=== PATIENT | male | born 1950 | race Caucasian/White ===

== ENCOUNTER 2020-03-31 14:34 | Emergency (ER) | payer MEDICARE ==
[~2020-03-31] VITALS: Ht 180.3 cm; Wt 102.4 kg
[2020-03-31] MEDS ORDERED: SODIUM CHLORIDE FLUSH 10ML SYR IVF ONE (15:00)
--- NOTE | 2020-03-31 15:03 | NUR ---
CAM SPECIALIST: EKG DONE IN TRIAGE.
--- NOTE | 2020-03-31 15:22 | NUR ---
PT BIB POV. PT REPORTS HAVING DIFFICULTY BREATHING. PT REPORTS THAT HE IS AN ASTHMATIC AND HAS NOT BEEN RESPONDING TO HIS ALBUTEROL WELL FOR THE PAST 2 WEEKS. PT WEARS CPAP AT NIGHT. PT RESTING IN [facility], MONITORING IN PLACE, EKG DONE, NADN AT THIS TIME, LAB AT BEDSIDE FOR BLOOD DRAW, WCTM.
[2020-03-31 15:29] LABS: BASOPHILS % (AUTO) 2 % (0-1); EOSINOPHILS % (AUTO) 15 % (1-7); LYMPHOCYTES % (AUTO) 14 % (22-44); MEAN CORPUSCULAR HEMOGLOBIN 33.7 pg (27.5-34.5); MEAN CORPUSCULAR HGB CONC 34.1 g/dL (33.2-36.2); MEAN PLATELET VOLUME 8.2 fL (7.4-10.4); MONOCYTES % (AUTO) 12 % (2-9); NEUTROPHILS % (AUTO) 57 % (42-75); PLATELET COUNT 399 x10^3/uL (130-400); RED BLOOD COUNT 4.65 x10^6/uL (4.38-5.82); RED CELL DISTRIBUTION WIDTH 13.7 % (9.4-14.8)
[2020-03-31 15:33] LABS: MD NO
[2020-03-31 15:37] LABS: ALBUMIN 4.1 g/dL (3.4-5.0); ANION GAP 13 mmol/L (5-15); CALCIUM 9.5 mg/dL (8.5-10.1); CHLORIDE 95 mmol/L (98-107)
[2020-03-31 15:43] LABS: CREATININE 1.68 mg/dL (0.7-1.3)
[2020-03-31 15:44] LABS: ALANINE AMINOTRANSFERASE 75 U/L (12-78); ALKALINE PHOSPHATASE 117 U/L (45-117); BILIRUBIN,TOTAL 0.6 mg/dL (0.2-1.0); TOTAL PROTEIN 8.2 g/dL (6.4-8.2); TROPONIN I < 0.015 ng/mL (0.000-0.045)
[2020-03-31 16:13] VITALS: BP 124/78
[2020-03-31] MEDS ORDERED: ALBUTEROL/IPRATROPIUM 2.5MG/0.5MG, 3 ML ONE (16:26)
[2020-03-31] MEDS ORDERED: ALBUTEROL/IPRATROPIUM 2.5MG/0.5MG, 3 ML NPPB ONE (16:30)
== END 2020-03-31 17:13 | disposition home or self-care (01) ==
LOC: ED 16:54
DX: J45.901 Unspecified asthma with (acute) exacerbation (principal); R07.89 Other chest pain; R06.00 Dyspnea, unspecified
CPT/HCPCS: 36415; 71045; 80053; 83880; 84484; 85025; 93005; 94640; 99285; J7512

== ENCOUNTER 2020-04-09 09:31 | Inpatient (IN) | payer MEDICARE ==
[~2020-04-09] VITALS: Ht 180.3 cm; Wt 98.3 kg
--- NOTE | 2020-04-09 09:56 | NUR ---
at bedside for exam.
--- NOTE | 2020-04-09 10:00 | NUR ---
guillotine trimmer completed after MD exam. Warm blanket provided and diet tray ordered with special instructions for no nuts due to severe allergy attached to order. Pt denies c/o at this time stating all symptoms have resolved thus far.
[2020-04-09 10:26] LABS: BASOPHILS % (AUTO) 0 % (0-1); EOSINOPHILS % (AUTO) 0 % (1-7); LYMPHOCYTES % (AUTO) 4 % (22-44); MEAN CORPUSCULAR HEMOGLOBIN 33.8 pg (27.5-34.5); MEAN CORPUSCULAR HGB CONC 34.9 g/dL (33.2-36.2); MEAN PLATELET VOLUME 8.1 fL (7.4-10.4); MONOCYTES % (AUTO) 8 % (2-9); NEUTROPHILS % (AUTO) 88 % (42-75); PLATELET COUNT 352 x10^3/uL (130-400); RED BLOOD COUNT 4.57 x10^6/uL (4.38-5.82); RED CELL DISTRIBUTION WIDTH 13.9 % (9.4-14.8)
[2020-04-09 10:30] LABS: ALANINE AMINOTRANSFERASE 57 U/L (12-78); ALBUMIN 3.6 g/dL (3.4-5.0); ANION GAP 19 mmol/L (5-15); CALCIUM 9.1 mg/dL (8.5-10.1); CHLORIDE 93 mmol/L (98-107); CREATININE 2.33 mg/dL (0.7-1.3)
[2020-04-09 10:32] LABS: ALKALINE PHOSPHATASE 113 U/L (45-117); BILIRUBIN,TOTAL 0.8 mg/dL (0.2-1.0); TOTAL PROTEIN 7.4 g/dL (6.4-8.2)
[2020-04-09 10:36] LABS: MD NO
--- NOTE | 2020-04-09 10:52 | NUR ---
Report given to FIDENCIO Marie and care transferred.
--- NOTE | 2020-04-09 10:53 | NUR ---
REPORT RECEIVED FROM YUVAL NICOLAS. ASSUMING CARE AT THIS TIME. PT RESTING COMFORTABLY ON GURNEY WITH FAMILY AT BEDSIDE. NADN. AWAITING DIET TRAY.
--- NOTE | 2020-04-09 10:57 | NUR ---
DAMARIS ORTIZ PROVIDED. PT APPRECIATIVE.
[2020-04-09] MEDS ORDERED: SODIUM CHLORIDE 0.9% 1,000ML IVBOLUS ONE (11:00)
--- NOTE | 2020-04-09 11:11 | NUR ---
PIV PLACED. IVF RUNNING. PT EATING.
--- NOTE | 2020-04-09 11:46 | NUR ---
PT AMBULATED TO RESTROOM WITH STEADY GAIT TO PROVIDE URINE SAMPLE. PT UNABLE TO PROVIDE SAMPLE AT THIS TIME.
--- NOTE | 2020-04-09 12:38 | NUR ---
PT AMBULATED TO RESTROOM WITH STEADY GAIT TO PROVIDE URINE SAMPLE. UA COLLECTED AND SENT TO LAB.
[2020-04-09 12:56] LABS: MICROSCOPIC NOT IND
--- NOTE | 2020-04-09 13:41 | NUR ---
REPORT GIVEN TO DELIA NICOLAS. PT RTG TO ROOM 359
[2020-04-09 14:34] VITALS: BP 111/71
[2020-04-09 15:10] VITALS: BP 116/68
[2020-04-09] MEDS ORDERED: FLUT9.9S NAS (15:21)
[2020-04-09] MEDS ORDERED: FLUT12AE INH (15:21)
[2020-04-09] MEDS ORDERED: ALBU90AE INH (15:21)
[2020-04-09] MEDS ORDERED: METO25TA35 PO (15:38)
[2020-04-09] MEDS ORDERED: MONT10TA17 PO (15:38)
[2020-04-09] MEDS ORDERED: EZET10TA70 PO (15:38)
[2020-04-09] MEDS ORDERED: ALLO300T PO (15:38)
[2020-04-09] MEDS ORDERED: CHLO25TA PO (15:38)
[2020-04-09] MEDS ORDERED: OLME20TA17 PO (15:38)
[2020-04-09] MEDS ORDERED: PRED10TA PO (15:52)
[2020-04-09] MEDS ORDERED: ALBU2.5V NEB (15:52)
[2020-04-09] MEDS ORDERED: LORA-247 PO (15:52)
[2020-04-09] MEDS ORDERED: ALBUTEROL SULFATE 2.5 MG/3 ML NEB PRN (16:00)
[2020-04-09] MEDS ORDERED: LORATADINE 10 MG TABLET PO PRN (16:00)
[2020-04-09] MEDS ORDERED: DOCUSATE 100 MG CAPSULE PO PRN (16:30)
[2020-04-09] MEDS ORDERED: POLYETHYLENE GLYCOL 17 GM PACKET PO PRN (16:30)
[2020-04-09] MEDS ORDERED: ACETAMINOPHEN 325 MG TABLET PO PRN (16:30)
[2020-04-09] MEDS ORDERED: BISACODYL 10 MG SUPP PR PRN (16:30)
[2020-04-09] MEDS ORDERED: METOCLOPRAMIDE 5 MG/ML, 2ML IVPush PRN (16:30)
[2020-04-09] MEDS: ALBUTEROL HFA 90 MCG/SPRAY INH PRN ×2 (18:25→21:08)
[2020-04-09] MEDS: HEPARIN 5,000 UNITS/ML, 1ML SQ SCH (18:25)
[2020-04-09] MEDS: methylPREDNISolone SOD SUCC 40 MG/ML IVPush SCH (18:25)
[2020-04-09] MEDS: SODIUM CHLORIDE 0.9% 1,000 ML IV SCH (18:28)
[2020-04-09] MEDS ORDERED: CEFTRIAXONE PMX 1GM/50ML 50 ML IV SCH (18:30)
[2020-04-09] MEDS ORDERED: FLUTICASONE NASAL SPRAY 16GM NAS SCH (21:00)
[2020-04-09 21:18] VITALS: BP 121/70
[2020-04-10] MEDS: methylPREDNISolone SOD SUCC 40 MG/ML IVPush SCH (01:15)
[2020-04-10] MEDS: HEPARIN 5,000 UNITS/ML, 1ML SQ SCH ×2 (01:15→09:14)
[2020-04-10 01:18] VITALS: BP 95/58
[2020-04-10] MEDS: SODIUM CHLORIDE 0.9% 1,000 ML IV SCH (05:00)
[2020-04-10 05:25] LABS: BASOPHILS % (AUTO) 1 % (0-1); EOSINOPHILS % (AUTO) 0 % (1-7); LYMPHOCYTES % (AUTO) 3 % (22-44); MEAN CORPUSCULAR HGB CONC 34.4 g/dL (33.2-36.2); MEAN PLATELET VOLUME 8.4 fL (7.4-10.4); MONOCYTES % (AUTO) 2 % (2-9); NEUTROPHILS % (AUTO) 94 % (42-75); PLATELET COUNT 316 x10^3/uL (130-400); RED BLOOD COUNT 4.39 x10^6/uL (4.38-5.82); RED CELL DISTRIBUTION WIDTH 13.6 % (9.4-14.8)
[2020-04-10 05:36] LABS: ALBUMIN 3.1 g/dL (3.4-5.0); ANION GAP 11 mmol/L (5-15); CHLORIDE 93 mmol/L (98-107)
[2020-04-10 05:45] LABS: CALCIUM 8.3 mg/dL (8.5-10.1); CREATININE 1.65 mg/dL (0.7-1.3)
[2020-04-10 05:46] LABS: ALANINE AMINOTRANSFERASE 45 U/L (12-78); ALKALINE PHOSPHATASE 129 U/L (45-117); BILIRUBIN,TOTAL 0.4 mg/dL (0.2-1.0); CHOL/HDL RATIO 3.3; CHOLESTEROL, TOTAL 187 mg/dL (140-239); HDL CHOL % 30 % (26-37); HDL CHOLESTEROL (DIRECT) 56 mg/dL (40-60); LDL CHOLESTEROL,CALCULATED 106 mg/dL (54-169); LDL/HDL RATIO 1.9 (0.5-3.0); TOTAL PROTEIN 6.4 g/dL (6.4-8.2); TRIGLYCERIDES 126 mg/dL (50-200); VLDL CHOLESTEROL 25 mg/dL (0-25)
[2020-04-10 05:58] LABS: MD SCAN
[2020-04-10] MEDS ORDERED: PANTOPRAZOLE 40MG TABLET PO SCH (07:30)
[2020-04-10 08:20] LABS: ANION GAP 12 mmol/L (5-15); CALCIUM 8.7 mg/dL (8.5-10.1); CHLORIDE 94 mmol/L (98-107); CREATININE 1.65 mg/dL (0.7-1.3)
[2020-04-10 08:49] VITALS: BP 134/81
[2020-04-10 08:51] VITALS: BP 141/96
[2020-04-10 08:52] VITALS: BP 113/71
[2020-04-10] MEDS ORDERED: MONTELUKAST 10 MG TABLET PO SCH (09:00)
[2020-04-10] MEDS ORDERED: ALLOPURINOL 100 MG TABLET PO SCH (09:00)
[2020-04-10] MEDS ORDERED: FLUTICASONE FUROATE 100MCG/INH INH SCH (09:00)
[2020-04-10] MEDS ORDERED: EZETIMIBE 10 MG TABLET PO SCH (09:00)
[2020-04-10 13:44] VITALS: BP 122/72
== END 2020-04-10 16:45 | disposition home or self-care (01) | DRG 683 ==
LOC: ED 12:05 → EDIP 13:07 → 3N 13:53 → 5SO 14:57 → DCLOUNGE 04-10 16:37
PROVIDERS: ADMIT Hospitalist; ATTEND Family Medicine
DX: N17.9 Acute kidney failure, unspecified (principal); E87.1 Hypo-osmolality and hyponatremia; E86.0 Dehydration; R55 Syncope and collapse; D72.829 Elevated white blood cell count, unspecified; E11.9 Type 2 diabetes mellitus without complications; E78.5 Hyperlipidemia, unspecified; I10 Essential (primary) hypertension; I44.4 Left anterior fascicular block; J45.909 Unspecified asthma, uncomplicated; G47.33 Obstructive sleep apnea (adult) (pediatric); J33.9 Nasal polyp, unspecified; M10.9 Gout, unspecified; Z79.82 Long term (current) use of aspirin; Z79.899 Other long term (current) drug therapy; Z88.8 Allergy status to other drugs, medicaments and biological substances; Z79.891 Long term (current) use of opiate analgesic; Z91.018 Allergy to other foods
CPT/HCPCS: 36415; 71046; 80048; 80053; 80061; 81003; 83036; 83735; 84100; 84443; 85025; 93005; 96361; 96374; 96375; 99285; C8929; G0378; J0696; J1644; Q9957; J2920; J7030; J7512

== ENCOUNTER 2020-04-13 15:50 | Emergency (ER) | payer MEDICARE ==
[~2020-04-13] VITALS: Ht 180.3 cm; Wt 97.0 kg
[~2020-04-13 15:50] MED LIST: ALBU2.5V NEB; ALBU90AE INH; ALLO300T PO; CHLO25TA PO; EZET10TA70 PO; FLUT12AE INH; FLUT9.9S NAS; LORA-247 PO; METO25TA35 PO; MONT10TA17 PO; OLME20TA17 PO; PRED10TA PO
--- NOTE | 2020-04-13 16:06 | NUR ---
BIBA CC OF HEAD/NECK PAIN, LIGHTHEADED, AND WEAKNESS. EMS FOUND PT TO HAVE BP OF 73/56 AT HOME, PIV PLACED AND 140 MLS OF NS GIVEN WITH BP INCREASING TO 101/66. PT WAS JUST HERE FOR GLF AT HOME AND HYPONATREMIA AND CONCERED HIS SYMPTOMS MIGHT BE RELATED TO THAT. PT WAS ALSO TOLD TO STOP TAKING TWO MEDICATIONS THAT HE CANNOT REMEMBER, HOWEVER HE DOES KNOW ONE IS AN ANTIARTHYMIA. AT HOME PT STATES HE WAS SITTING IN THE SUN AND FELT THESE SYMTPOMS AND FELT BETTER ONCE MOVING TO SHADY PART OF THE HOUSE. 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
[2020-04-13 17:43] LABS: MEAN CORPUSCULAR HEMOGLOBIN 33.4 pg (27.5-34.5); MEAN CORPUSCULAR HGB CONC 33.9 g/dL (33.2-36.2); MEAN PLATELET VOLUME 8.2 fL (7.4-10.4); PLATELET COUNT 307 x10^3/uL (130-400); RED CELL DISTRIBUTION WIDTH 13.9 % (9.4-14.8)
[2020-04-13 17:52] LABS: ALBUMIN 3.1 g/dL (3.4-5.0); ANION GAP 12 mmol/L (5-15); CALCIUM 8.5 mg/dL (8.5-10.1); CHLORIDE 93 mmol/L (98-107)
[2020-04-13 17:56] LABS: ALANINE AMINOTRANSFERASE 73 U/L (12-78); ALKALINE PHOSPHATASE 116 U/L (45-117); BILIRUBIN,TOTAL 0.5 mg/dL (0.2-1.0); CREATININE 2.03 mg/dL (0.7-1.3); TOTAL PROTEIN 6.7 g/dL (6.4-8.2)
[2020-04-13 18:20] LABS: MD YES
[2020-04-13 18:22] LABS: BAND#(MANUAL) 0.33 x10^3/uL; BANDS%(MANUAL) 2 % (0-7); LYMPHS% (MANUAL) 6 % (22-44); METAMYELOCYTES# (MANUAL) 0.84 x10^3/uL (0-0); METAMYELOCYTES% (MANUAL) 5 % (0-1); MONOS#(MANUAL) 3.17 x10^3/uL (0.3-2.7); MONOS% (MANUAL) 19 % (2-9); SEG#(MANUAL) 11.36 x10^3/uL (1.8-6.8); SEGS% (MANUAL) 68 % (42-75)
[2020-04-13 18:23] LABS: <PLATELET ESTIMATE> ADEQUATE; <PLT MORPHOLOGY> NORMAL PLT MORPH; <RBC MORPHOLOGY> NORMAL
[2020-04-13 18:23] LABS: MICROSCOPIC NOT IND
[2020-04-13] MEDS ORDERED: SODIUM CHLORIDE 0.9% 1,000ML IVBOLUS ONE (18:30)
--- NOTE | 2020-04-13 19:05 | NUR ---
PT STATES HE WAS TOLD TO DRINK 15 CUPS OF WATER DAILY AND HE HAS BEEN DOING SO. ERP NORMA MADE AWARE.
--- NOTE | 2020-04-13 19:37 | NUR ---
PT STATES HE FEELS SAME AFTER IVF. STEADY GAIT, INDEPENDENTLY AMBULATORY. NO RAVI.
[2020-04-13 20:09] VITALS: BP 131/66
== END 2020-04-13 20:22 | disposition home or self-care (01) ==
LOC: ED 19:55
DX: D72.829 Elevated white blood cell count, unspecified (principal); M54.2 Cervicalgia; I10 Essential (primary) hypertension; R51.9 Headache, unspecified; R00.8 Other abnormalities of heart beat; E87.1 Hypo-osmolality and hyponatremia; E11.9 Type 2 diabetes mellitus without complications; J45.909 Unspecified asthma, uncomplicated
CPT/HCPCS: 36415; 70450; 80053; 81003; 85025; 93005; 96360; 99285; J7030

== ENCOUNTER 2020-08-10 20:53 | Observation (INO) | payer MEDICARE ==
[~2020-08-10] VITALS: Ht 180.3 cm; Wt 104.4 kg
--- NOTE | 2020-08-10 21:09 | NUR ---
PT C/O OF TIGHT STERNAL CP SINCE 1 HOUR THAT RADIATES UNDER LEFT AND RIGHT BREAST. PT ROMA DIAPHORETIC. SINUS KATHLEEN AT 47. NO RELIEF AFTER 2 NITRO. LAST ONE AT 2043. EKG DONE AT BEDSIDE. DENIES HEADACHE, VISUAL DISTURBANCES AND SOB 325 ASA IN AM AND 325 ASA ONE HOUR AGO ATTACHED TO CARD/SP02/BP MONITORS. NADN. BED IN LOW POSITION, RAILS ENGAGED. CALL LIGHT ON LAP. CHANGED INTO GOWN.
[2020-08-10] MEDS ORDERED: ONDANSETRON 2MG/ML, 2ML ONE (21:18)
[2020-08-10] MEDS ORDERED: MORPHINE SULFATE 4 MG/ML, 1ML ONE (21:18)
[2020-08-10] MEDS ORDERED: ONDANSETRON 2MG/ML, 2ML IVPush ONE (21:30)
[2020-08-10] MEDS ORDERED: MORPHINE SULFATE 4 MG/ML, 1ML IVPush PRN (21:30)
[2020-08-10 21:40] LABS: BASOPHILS % (AUTO) 1 % (0-1); EOSINOPHILS % (AUTO) 6 % (1-7); LYMPHOCYTES % (AUTO) 15 % (22-44); MEAN CORPUSCULAR HGB CONC 33.9 g/dL (33.2-36.2); MEAN PLATELET VOLUME 8.4 fL (7.4-10.4); MONOCYTES % (AUTO) 15 % (2-9); NEUTROPHILS % (AUTO) 63 % (42-75); PLATELET COUNT 275 x10^3/uL (130-400); RED BLOOD COUNT 4.32 x10^6/uL (4.38-5.82); RED CELL DISTRIBUTION WIDTH 15.1 % (9.4-14.8)
[2020-08-10 21:47] LABS: ALANINE AMINOTRANSFERASE 95 U/L (12-78); ALBUMIN 3.5 g/dL (3.4-5.0); ANION GAP 10 mmol/L (5-15); CALCIUM 8.8 mg/dL (8.5-10.1); CHLORIDE 110 mmol/L (98-107); CREATININE 1.32 mg/dL (0.7-1.3)
[2020-08-10 21:52] LABS: ALKALINE PHOSPHATASE 103 U/L (45-117); BILIRUBIN,TOTAL 0.4 mg/dL (0.2-1.0); TOTAL PROTEIN 7.3 g/dL (6.4-8.2); TROPONIN I < 0.015 ng/mL (0.000-0.045)
[2020-08-10] MEDS ORDERED: OMNIPAQUE 350 MG/ML, 75ML BOTTLE ONE (22:21)
[2020-08-10] MEDS ORDERED: flonase (23:24)
[2020-08-10] MEDS ORDERED: FLUT10.6 INH (23:24)
[2020-08-10] MEDS ORDERED: METO50TA82 PO (23:24)
[2020-08-10] MEDS ORDERED: ASPI-963 PO (23:24)
[2020-08-10] MEDS ORDERED: MONT4GRA PO (23:24)
--- NOTE | 2020-08-10 23:24 | NUR ---
pt able to remember some medications but not all dosages. pt poor historian of med rec.
[2020-08-10] MEDS ORDERED: KENALOG INJ (23:30)
--- NOTE | 2020-08-10 23:30 | NUR ---
Note otf in EDM - 08/11/20 at 0009 by [email or web address] PT ASKED IF SHE WAS READY TO HAVE LABS, MEDS, AND VITALS DONE BUT REFUSED. PT RESTING IN BED. ALERT. BVREATIHNG EVEN AND UNLABORED. EVITAN. SAME SAFETY PRECAUTIONS PUT INTO PLACE. WCTM.
[2020-08-11] MEDS ORDERED: LORATADINE 10 MG TABLET PO PRN
--- NOTE | 2020-08-11 00:06 | NUR ---
GAVE REPORT TO RYDER NICOLAS.
[2020-08-11] MEDS ORDERED: POLYETHYLENE GLYCOL 17 GM PACKET PO PRN (00:30)
[2020-08-11] MEDS ORDERED: NITROGLYCERIN 0.4 MG BOTTLE (25 TABS) SL PRN (00:30)
[2020-08-11] MEDS ORDERED: ONDANSETRON ODT 4 MG PO PRN (00:30)
[2020-08-11] MEDS ORDERED: morphine SULFATE 10 MG/ML, 1ML IVPush PRN (00:30)
[2020-08-11] MEDS ORDERED: ACETAMINOPHEN 325 MG TABLET PO PRN (00:30)
[2020-08-11] MEDS ORDERED: BISACODYL 10 MG SUPP PR PRN (00:30)
[2020-08-11 00:52] VITALS: BP 153/90
[2020-08-11 03:48] LABS: TROPONIN I < 0.015 ng/mL (0.000-0.045)
[2020-08-11 07:56] VITALS: BP 129/76
[2020-08-11] MEDS ORDERED: REGADENOSON 0.4 MG/5 ML SYRINGE ONE (08:43)
[2020-08-11] MEDS ORDERED: SENNA/DOCUSATE TABLET PO SCH (09:00)
[2020-08-11] MEDS ORDERED: ALLOPURINOL 300 MG TABLET PO SCH (09:00)
[2020-08-11] MEDS ORDERED: SODIUM CHLORIDE FLUSH 10ML SYR IVF SCH (09:00)
[2020-08-11] MEDS ORDERED: EZETIMIBE 10 MG TABLET PO SCH (09:00)
[2020-08-11] MEDS ORDERED: ASPIRIN 325 MG TABLET EC PO SCH (09:00)
[2020-08-11 09:29] LABS: ALANINE AMINOTRANSFERASE 72 U/L (12-78); ANION GAP 6 mmol/L (5-15); CALCIUM 8.2 mg/dL (8.5-10.1); CHLORIDE 111 mmol/L (98-107)
[2020-08-11 09:34] LABS: ALKALINE PHOSPHATASE 88 U/L (45-117); BILIRUBIN,TOTAL 0.4 mg/dL (0.2-1.0); CREATININE 1.21 mg/dL (0.7-1.3); TOTAL PROTEIN 6.3 g/dL (6.4-8.2); TROPONIN I < 0.015 ng/mL (0.000-0.045)
[2020-08-11] MEDS ORDERED: FAMO20TA7 PO (14:26)
[2020-08-11 14:48] VITALS: BP 135/82
[2020-08-11 15:10] VITALS: BP 133/80
== END 2020-08-11 17:03 | disposition home or self-care (01) ==
LOC: ED 21:46 → INTOOBSV 23:36 → EDIP 23:36 → 5SO 08-11 00:43
PROVIDERS: ADMIT Family Medicine; ATTEND Family Medicine
DX: I20.0 Unstable angina (principal); R74.01 Elevation of levels of liver transaminase levels; D75.89 Other specified diseases of blood and blood-forming organs; H91.90 Unspecified hearing loss, unspecified ear; J45.909 Unspecified asthma, uncomplicated; I10 Essential (primary) hypertension; M10.9 Gout, unspecified; E78.5 Hyperlipidemia, unspecified; E11.9 Type 2 diabetes mellitus without complications; K80.20 Calculus of gallbladder without cholecystitis without obstruction; R59.0 Localized enlarged lymph nodes; F41.9 Anxiety disorder, unspecified; Z79.899 Other long term (current) drug therapy; Z87.442 Personal history of urinary calculi
CPT/HCPCS: 36415; 71275; 74175; 76705; 78452; 80053; 82607; 83690; 83880; 84484; 85025; 93005; 93017; 93306; 96374; 96375; 99285; A9502; G0378; J2270; J2405; J2785; Q9967

== ENCOUNTER 2020-10-09 12:27 | Outpatient (CLI) | payer MEDICARE ==
[~2020-10-09 12:27] MED LIST changes: +ASPI-963 PO; +FAMO20TA7 PO; +FLUT10.6 INH; +KENALOG INJ; +METO50TA82 PO; +MONT4GRA PO; +flonase
== END 2020-10-09 23:59 | disposition home or self-care (01) ==
LOC: CFH 12:27
PROVIDERS: ATTEND Registered Nurse
DX: J98.4 Other disorders of lung (principal); R91.8 Other nonspecific abnormal finding of lung field; M51.34 Other intervertebral disc degeneration, thoracic region; N28.1 Cyst of kidney, acquired
CPT/HCPCS: 71250